=== PATIENT | male | born 2000 ===

== ENCOUNTER → 2021-06-22 | Outpatient (REF) | LOC: M LAB 14:59 | PROVIDERS: ATTEND Nurse Practitioner Adult Health | DX: Z02.89 Encounter for other administrative examinations (principal) ==

== ENCOUNTER → 2022-04-09 | Outpatient (REF) | LOC: M LABSMTC 10:52 | PROVIDERS: ATTEND Family Medicine | DX: Z20.820 Contact with and (suspected) exposure to varicella (principal) ==